=== PATIENT | female | born 1980 | race Caucasian/White ===

== ENCOUNTER 2019-03-08 09:48 | Observation (INO) | payer OTHER ==
[~2019-03-08] VITALS: Ht 172.7 cm; Wt 77.2 kg
--- NOTE | 2019-03-08 13:48 | NUR ---
1330: PT ARRIVED TO MED-SURG VIA STRECHER FROM THE ER. REPORT WAS CALLED TO ME BY OLYA SERRANO. PT STATES SHE HAS RIGHT SIDED NECK PAIN RATED AT A 5/10 WHICH SHE STATES IS TOLERABLE AT THIS TIME. THERE IS SOME NOTED SWELLING, SHE DENIES ANY SOB AND HER SAT IS 100% ON ROOM AIR. PT WAS ORIENTED TO THE ROOM AND INSTRUCTED IN THE USE OF HER CALL MERCADO. PT'S SPOUSE IN THE ROOM WITH THE PT. PT INSTRUCTED TO CALL WITH ANY SOB, INCREASED SWELLING WITH INCREASING PAIN WHICH SHE STATES UNDERSTANDING.
--- NOTE | 2019-03-08 14:10 | NUR ---
DR MYLES IN THE ROOM SEEING THE PT AT THIS TIME.
--- NOTE | 2019-03-08 14:46 | NUR ---
PT RESTING IN HER BED AND SHE STATES HER SYMPTOMS ARE UNCHANGED AND HER PAIN REAMINS AT A 5/10 AND SHE DECLINES MEDICATION AT THIS TIME WHEN OFFERED.
--- NOTE | 2019-03-08 16:09 | NUR ---
PT SITTING UP IN HER BED EATING AND SHE DENIES ANY TROUBLE SWALLOWING OR PAIN RELATED TO EATING. SHE CONTINUES TO STATE HER RIGHT SIDED NECK PAIN IS A 5/10 WHICH IS UNCHANGED AND ACCEPTABLE TO HER AT THIS TIME. THE RIGHT SIDE OF THE NECK CONTINUES TO HAVE SOME NOTED SWELLING WHICH APPEARS UNCHANGED. PT DENIES ANY SOB ALSO.
--- NOTE | 2019-03-08 17:32 | NUR ---
Patient in for external jugular vein occlusion. Dr. Ann in room following US to give good news they have 1 healthy 7 1/2 week baby. Pt and spouse are very excited and she states she was concerned they may have multiples due to infertility drugs and invetro. Pt works at [employer]. Pt admitted for education of Lovenox injections. Will dc to home tomorrow when discharged with instructions from Dr. Ann to not return to work until Wednesday and not to out on Wednesday as was planned.
--- NOTE | 2019-03-08 18:47 | EKG ---
[facility] [address] [facility] [place], [place] [address] Signed Normal sinus rhythm Normal ECG No previous ECGs available Confirmed by MARIANA MYLES DO ([id number]) on 03/08/2019 6:47:19 PM Electronically Signed By: MARIANA MYLES DO 03/08/19 1847 PATIENT NAME: NOLBERTO MESSINALEWIS Electrocardiogram DATE OF : 84 PHYSICIAN: MARIANA MYLES DO REPORT #: [id number] REPORT IS CONFIDENTIAL AND NOT TO BE RELEASED WITHOUT AUTHORIZATION
--- NOTE | 2019-03-08 18:55 | NUR ---
Pt states her right sided neck pain remains at a 5 and she declines Tylenol at this time. She denies any new problems or change in condition. Her neck appears unchanged. Pt's spouse (Stephon) remains at the bedside.
--- NOTE | 2019-03-08 19:00 | NUR ---
BEDSIDE REPORT RECEIVED FROM EARNESTINE BARBA AT BEDSIDE. PT AWAKE AND AMBULATING IN ROOM, ALSO IN ROOM. DENIES NEEDS.
--- NOTE | 2019-03-08 21:00 | NUR ---
PT AMBULATING IN ROOM, DENIES NEEDS AT THIS TIME. ALSO IN ROOM WITH PT.
--- NOTE | 2019-03-08 22:29 | NUR ---
VS AND I&OS COMPLETE. PT USED REST ROOM, AND REQUESTED MORE ICE WATER. SHE ALSO REQUESTED MORE PILLOWS FOR ADDITIONAL COMFORT. NOTHING FURTHER NEEDED AT THIS TIME.
--- NOTE | 2019-03-08 22:30 | NUR ---
ASSESSMENT COMPLETE, SCHEDULED MEDS GIVEN (SEE EMAR). PRN TYLENOL GIVEN FOR 5/10 PAIN IN RIGHT NECK. VSS, PT ON RA, RR WNL. NO DISTRESS NOTED. PT REPORTS FEELING SHORT OF BREATH AT TIMES AND MINIMAL PRESSURE IN UPPER CHEST NEAR NECK, PT STATES, "I DON'T KNW IF IT'S JUST FROM THE PRESSURE IN MY NECK". ENCOURAGED TO REST IN BED. PT ALSO STATES, "I'M NORMALLY PRETTY ACTIVE, BUT SINCE SEVEN-THIRTY TONGIHT, I FEEL LIKE I'M GETTING TIRED MORE EASILY". DISCUSSED [facility] DIRECTOR OF INTERCOLLEGIATE ATHLETICS AND WILL MONITOR. DISCUSSED WITH PT IMPORTANCE TO NOTIFY NURSING STAFF IF DIFFICULTY BREATHING, SOB, OR CHEST PAIN WORSENS. PT VERBALIZES UNDERSTANDING. STANDING WEIGHT OBTAINED, SEE INTERVENTION. PT RESTING IN BED, NO FURTHER NEEDS VERBALIZED. CALL LIGHT IN REACH.
--- NOTE | 2019-03-09 01:06 | NUR ---
PT RESTING IN BED. RR WNL, PT DENIES CHEST PAIN AT THIS TIME AND VERBALIZES THAT WORK OF BREATHING IS "EASIER THAN EARLIER". REPORTS PAIN IN RIGHT NECK HAS LESSENED SINCE ADMINISTRATION OF TYLENOL. NO NEEDS, CALL LIGHT IN REACH.
--- NOTE | 2019-03-09 03:05 | NUR ---
ASSESSMENT COMPLETE, NO NEW CHANGES OR CONCERNS. VSS, PT ON RA. PT DENIES CHEST PAIN, O2 SAT WNL. RIGHT NECK TENDER TO TOUCH, NO INCREASE IN SWELLING NOTED. PT DESCRIBES PAIN TOLERABLE AT THIS TIME, WILL MONITOR FOR CHANGES. NO FURTHER NEEDS, CALL LIGHT IN REACH.
--- NOTE | 2019-03-09 04:47 | NUR ---
PRN TYLENOL GIVEN FOR 5/10 RIGHT SIDED NECK PAIN. ROOM TIDED AND VS COLLECTED BY JUNE PHYSICIAN PEDIATRICIAN. NO FURTHER NEEDS, CALL LIGHT IN REACH.
--- NOTE | 2019-03-09 06:30 | NUR ---
PT HAD UNEVENTFUL NIGHT, VSS, PT REMAINED ON RA. RR WNL. AD BERNABE IN ROOM, USES CALL LIGHT APPROPERIATELY. PAIN CONTROLLED WITH PRN TYLENOL. REGULAR DIET, TOLERATING WELL, NO NAUSEA. VOIDING QS, NO BM THIS SHIFT.
--- NOTE | 2019-03-09 07:34 | NUR ---
Spoke to dr vega regarding pt's minimal chest pressure experienced earlier in shift that resolved. Also gave md a quick update regarding pt. no new orders.
--- NOTE | 2019-03-09 08:56 | NUR ---
MORNING ASSESSMENT DONE. PATIENT REPORTS 4/10 PAIN TO RIGHT NECK. PATIENT WAS ABLE TO SELF INJECT WITH LOVENOX. SPOUSE IN ROOM WITH PATIENT. PATIENT HAS QUESTIONS ABOUT POTENTIAL ACTIVITY RESTRICTIONS WITH CLOT AND MEDICATIONS.
--- NOTE | 2019-03-09 09:20 | NUR ---
VISITED WITH PT AND HER SPOUSE REGINA. PT IS KNOWLEDGEABLE ABOUT HER DX SHE WAS ABLE TO VERBALIZE IT AND THE MEDICATION THAT SHE WOULD BE TAKING FOR THIS. STATED THAT THIS MORNING DOSE SHE GAVE AND STATED THAT SHE FELT COMFORTABLE DOING THIS SHE STATES THIS WILL BE TWICE A DAY FOR 3 TO 6 MONTHS I HAVE TO DO THIS. SHE ALSO STATED THAT THE PAIN MED TYLENOL HELPED A LITTLE BUT SHE WAS WONDERING IF THERE WAS SOMETHING ELSE SHE COULD DO FOR COMFORT. AFTER TALKING WITH DR MYLES I TOLD HER HE SUGGESTED ICE OR HEAT, AND POSS A LIDOCAINE PATCH. PT VERY RECEPTIVE OF THIS INFORMATION. WE DID DISCUSS THAT SHE COULD RESUME NORMAL ACTIVITIES, KNOWING THAT IF IT HURTS SHE SHOULDN'T DO IT. WE ALSO TALKED ABOUT NOT MASSAGING OR RUBBING THE AREA THIS MAY BREAK UP THE CLOT AND SEND SMALLER CLOTS INTO HER SYSTEM, SHE WAS ALSO TOLD BY DRS THAT IT IS HIGHLY RECOMMENDED NOT TO FLY ON AIRLINES THIS CHANGES THE PRESSURE TO HER VEINS. PT STATES SHE HAS NO FURTHER QUESTIONS AT THIS TIME.
[2019-03-09] MEDS ORDERED: PRENATAL FORMU1 EAC3 PO (09:49)
--- NOTE | 2019-03-09 10:33 | NUR ---
PATIENT DOING MORNING HYGIENE. FACIAL WIPES PROVIDED.
--- NOTE | 2019-03-09 10:46 | NUR ---
1/2 LIDODERM PATCH PLACED TO RIGHT NECK. TYLENOL GIVEN FOR 4/10 PAIN.
[2019-03-09] MEDS ORDERED: ENOXAPARIN80 MG/0.8 SUB-Q (11:47)
[2019-03-09] MEDS ORDERED: LIDOCAINE1 EACH TD (11:48)
--- NOTE | 2019-03-09 11:59 | NUR ---
PATIENT REPORTS THAT LIDODERM PATCH TO RIGHT NECK IS WORKING VERY WELL, PAIN TOLERABLE.
--- NOTE | 2019-03-09 13:31 | NUR ---
PATIENT AND SPOUSE GIVEN DISCHARGE PAPERS. VITALS ARE STABLE, PATIENT IS FINISHING LUNCH.
== END 2019-03-09 13:55 | disposition home or self-care (01) ==
LOC: ED 09:48 → MS 09:50
PROVIDERS: ADMIT Student in an Organized Health Care Education/Training Program
DX: O22 Venous complications and hemorrhoids in pregnancy (principal); I82.C11 Acute embolism and thrombosis of right internal jugular vein; I82.890 Acute embolism and thrombosis of other specified veins; O20.9 Hemorrhage in early pregnancy, unspecified; Z3A.01 Less than 8 weeks gestation of pregnancy
CPT/HCPCS: 76536; 76801; 76817; 80053; 81001; 84703; 85025; 93005; 93010; 96372; 99285-25; G0378; J1650

== ENCOUNTER 2019-03-14 10:58 | Emergency (ER) | payer OTHER ==
[~2019-03-14] VITALS: Ht 172.7 cm; Wt 77.2 kg
[~2019-03-14 10:58] MED LIST: ENOXAPARIN80 MG/0.8 SUB-Q; LIDOCAINE1 EACH TD; PRENATAL FORMU1 EAC3 PO
--- OUTSIDE RECORDS SUMMARY | 2019-03-14 11:00 | XMS ---
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 - 2 Visits in 30 Days CARE PROVIDERS There are no care providers on record at this time. Sav has no Care Guidelines for this patient. [place] VISIT COUNT (12 MO.) [address] [facility] TOTAL 2 NOTE: Visits indicate total known visits. ED/C VISIT TRACKING (12 MO.) 03/14/2019 10:[address] [facility] [place] TYPE: Emergency COMPLAINT: - BLOOD CLOT IN NECK, 8 WKS 03/08/2019 09:49 [facility] [place] TYPE: Emergency COMPLAINT: - DIFFICULTY SWALLOWING INPATIENT VISIT TRACKING (12 MO.) 03/08/2019 09:50 [facility] [place] TYPE: Observation COMPLAINT: - EXTERNAL JUGULAR VEIN OCCLUSION DIAGNOSES: - Hemorrhage in early , unspecified - Other venous complications in , first trimester - Acute embolism and thrombosis of other specified veins - 1 Less than 8 weeks gestation of - Acute embolism and thrombosis of right internal jugular vein [email or web address]
== END 2019-03-14 16:31 | disposition home or self-care (01) ==
LOC: ED 10:58
DX: O99.411 Diseases of the circulatory system complicating pregnancy, first trimester (principal); I82.C11 Acute embolism and thrombosis of right internal jugular vein; Z3A.08 8 weeks gestation of pregnancy
CPT/HCPCS: 93971; 99283-25

== ENCOUNTER 2019-10-22 03:31 | Inpatient (IN) | payer OTHER ==
[~2019-10-22] VITALS: Ht 172.7 cm; Wt 89.4 kg
--- NOTE | 2019-10-22 15:37 | PR ---
[facility] [address] [facility] [place], [place] [address] Signed Progress Notes IP Datetime Report Generated by LAKIA: 10/22/2019 15:37 PROGRESS NOTES: [id number] Impression: Normal Progression of Labor Procedures: Artificial ROM Plan: Continue Present Management; Anticipate Vaginal Delivery VITAL SIGNS: [id number] Vital Signs: Reviewed; Within Normal Limits EXAM: [id number] Dilatation: 3.0 Effacement: 90 Station: -1 Contractions: every 2-4 minutes MEMBRANES: [id number] Membranes Status: Ruptured Comments: Tolerating contractions well, but contractions seem to be spacing out some. PTT = 38.8 (WNL), so OK for Epidural when patient ready (per Anesthesia). PAtient not ready yet, would like to try IV pain meds f]irst, before needing Epidural. Will continue with AROM. Discussed meconium and delivery. Questions answered. FETUS A: [id number] FHR Baseline: 120 Variability: Moderate 6-25bpm Accelerations: 15X15 Presentation: Vertex FETUS B: [id number] Signing Physician: Moo Argueta MD Copies: ~ *Electronically Signed* 10/22/19 1537 MOO ARGUETA MD PATIENT NAME: LEWIS GARZON PROGRESS NOTE DATE OF : 84 PHYSICIAN: MOO ARGUETA MD RPT #: [id number] REPORT IS CONFIDENTIAL AND NOT TO BE RELEASED WITHOUT AUTHORIZATION
--- NOTE | 2019-10-22 21:07 | PR ---
[facility] [address] [facility] [place], [place] [address] Signed Progress Notes IP Datetime Report Generated by CPN: 10/22/2019 21:07 PROGRESS NOTES: [id number] Impression: Normal Progression of Labor Other Impressions: Slow Progression Procedures: Intrauterine Pressure Catheter; Scalp Electrode Plan: Continue Present Management; Anticipate Vaginal Delivery VITAL SIGNS: [id number] Vital Signs: Reviewed; Within Normal Limits EXAM: [id number] Dilatation: 4.5 Effacement: 90 Station: -1 Contractions: every 2-4 minutes MEMBRANES: [id number] Membranes Status: Ruptured Comments: Slow progression, head does not seem as well-applied as before. May need Pitiocin augmentation soon, but will observe with internal monitors for a short while. FETUS A: [id number] FHR Baseline: 120 Variability: Moderate 6-25bpm Accelerations: 15X15 Presentation: Vertex FETUS B: [id number] Signing Physician: Zara Argueta MD Copies: ~ *Electronically Signed* 10/22/196 ZARA ARGUETA MD PATIENT NAME: LEWIS GARZON PROGRESS NOTE DATE OF : 84 PHYSICIAN: ZARA ARGUETA MD RPT #: [id number] REPORT IS CONFIDENTIAL AND NOT TO BE RELEASED WITHOUT AUTHORIZATION
--- NOTE | 2019-10-22 21:08 | PR ---
[facility] [address] [facility] [place], [place] [address] Signed Progress Notes IP Datetime Report Generated by CPN: 10/22/2019 21:08 PROGRESS NOTES: [id number] Impression: Normal Progression of Labor Other Impressions: Slow Progression Procedures: Intrauterine Pressure Catheter; Scalp Electrode Plan: Continue Present Management; Anticipate Vaginal Delivery VITAL SIGNS: [id number] Vital Signs: Reviewed; Within Normal Limits EXAM: [id number] Dilatation: 4.5 Effacement: 90 Station: -1 Contractions: every 2-4 minutes MEMBRANES: [id number] Membranes Status: Ruptured Comments: Slow progression, head does not seem as well-applied as before. May need Pitiocin augmentation soon, but will observe with internal monitors for a short while. FETUS A: [id number] FHR Baseline: 120 Variability: Moderate 6-25bpm Accelerations: 15X15 Presentation: Vertex FETUS B: [id number] Signing Physician: Zara Argueta MD Copies: ~ *Electronically Signed* 10/22/19 9353 ZARA ARGUETA MD PATIENT NAME: LEWIS GARZON PROGRESS NOTE DATE OF : 84 PHYSICIAN: ZARA ARGUETA MD RPT #: [id number] REPORT IS CONFIDENTIAL AND NOT TO BE RELEASED WITHOUT AUTHORIZATION
--- NOTE | 2019-10-23 05:26 | PR ---
[facility] [address] [facility] [place], [place] [address] Signed Progress Notes IP Datetime Report Generated by CPN: 10/23/2019 05:26 PROGRESS NOTES: [id number] Impression: Normal Progression of Labor Other Impressions: Slow Progression Procedures: Intrauterine Pressure Catheter; Scalp Electrode Plan: Continue Present Management Other Plans: Start pushing VITAL SIGNS: [id number] Vital Signs: Reviewed; Within Normal Limits EXAM: [id number] Dilatation: 10.0 Effacement: 100 Station: 0 Contractions: every 2-4 minutes MEMBRANES: [id number] Membranes Status: Ruptured Comments: Comfortable with Epiduiral, will start pushing. FETUS A: [id number] FHR Baseline: 120 Variability: Moderate 6-25bpm Accelerations: 15X15 Presentation: Vertex FETUS B: [id number] Signing Physician: Moo Argueta MD Copies: ~ *Electronically Signed* 10/23/19 0526 MOO ARGUETA MD PATIENT NAME: LEWIS GARZON SOURAV PROGRESS NOTE DATE OF : 84 PHYSICIAN: MOO ARGUETA MD RPT #: [id number] REPORT IS CONFIDENTIAL AND NOT TO BE RELEASED WITHOUT AUTHORIZATION
--- NOTE | 2019-10-23 05:27 | PR ---
[facility] [address] [facility] [place], [place] [address] Signed Progress Notes IP Datetime Report Generated by CPN: 10/23/2019 05:27 PROGRESS NOTES: [id number] Impression: Normal Progression of Labor Other Impressions: Slow Progression Procedures: Intrauterine Pressure Catheter; Scalp Electrode Plan: Continue Present Management Other Plans: Start pushing VITAL SIGNS: [id number] Vital Signs: Reviewed; Within Normal Limits EXAM: [id number] Dilatation: 10.0 Effacement: 100 Station: 0 Contractions: every 2-4 minutes MEMBRANES: [id number] Membranes Status: Ruptured Comments: Comfortable with Epiduiral, will start pushing. FETUS A: [id number] FHR Baseline: 120 Variability: Moderate 6-25bpm Accelerations: 15X15 Presentation: Vertex FETUS B: [id number] Signing Physician: Moo Argueta MD Copies: ~ *Electronically Signed* 10/23/19 0527 MOO ARGUETA MD PATIENT NAME: LEWIS GARZON SOURAV PROGRESS NOTE DATE OF : 84 PHYSICIAN: MOO ARGUETA MD RPT #: [id number] REPORT IS CONFIDENTIAL AND NOT TO BE RELEASED WITHOUT AUTHORIZATION
--- NOTE | 2019-10-23 10:09 | NUR ---
10/23/19 1009 Sandrine Osullivan 1000- PT TO PACU IN SUPINE POSITION. EYES CLOSED. AWAKENS TO VOICE AND FOLLOWS COMMANDS APPROPRIATELY. BREATHING EASY AND UNLABORED. SPO2 >95% ON 6 L O2 VIA SIMPLE MASK. PT ABLE TO MOVE HIPS AND WIGGLE TOES. DENIES PAIN OR NAUSEA. TREMOR OBSERVED. PT ENCOURAGED TO TAKE DEEP BREATHS AND REST. 1008- PT CONTINUES TO BREATH EASY WITH EYES CLOSED. SPO2 >95% ON 6 L O2 VIA SIMPLE MASK. REPORT RECEIVED FROM GSE MECHANIC. CASEYS.
--- NOTE | 2019-10-23 13:08 | PR ---
[facility] [address] [facility] [place], [place] [address] Signed PP Progress Notes Datetime Report Generated by CPN: 10/23/2019 13:08 SUBJECTIVE: [id number] Pain: Within Normal Limits Nausea/Vomiting: Denies Vital Signs: [id number] Vital Signs: Reviewed; Within Normal Limits EXAM: Ongoing Abdomen/Uterus: Normal Lochia: Normal Extremities: Normal IMPRESSION/PLAN/PROCEDURES: [id number] Impression: Normal Progression Plan: Continue Present Management Procedures: None Progress Notes: Recovering well after PP Curettage, no compalints. Discussed surgery, findings, EBL. Will check Hemogram tonight and repeat in am. Plan to restart Lovenox therapeutic dose @ 1800 today (same dose as antepartum). Questions answered Signing Physician: Zara Argueta MD Copies: ~ *Electronically Signed* 10/23/19 1308 ZARA ARGUETA MD PATIENT NAME: LEWIS GARZON PROGRESS NOTE DATE OF : 84 PHYSICIAN: ZARA ARGUETA MD RPT #: [id number] REPORT IS CONFIDENTIAL AND NOT TO BE RELEASED WITHOUT AUTHORIZATION
--- NOTE | 2019-10-24 13:10 | PR ---
[facility] [address] [facility] [place], [place] [address] Signed PP Progress Notes Datetime Report Generated by CPN: 10/24/2019 13:10 SUBJECTIVE: [id number] Pain: Within Normal Limits Nausea/Vomiting: Denies Vital Signs: [id number] Vital Signs: Reviewed; Within Normal Limits Notable Details: PP Hgb/Hct = 8.2/24.7, Plts = 131 EXAM: Met Abdomen/Uterus: Normal Lochia: Normal Extremities: Normal IMPRESSION/PLAN/PROCEDURES: [id number] Impression: Normal Progression Plan: Continue Present Management Procedures: None Progress Notes: Doing well, without complaint, restarted Lovenox, normal PP bleeding. Discussed anemia, borderline platelets. Will repeat Hemogram in am. Signing Physician: Zara Argueta MD Copies: ~ *Electronically Signed* 10/24/19 1310 ZARA ARGUETA MD PATIENT NAME: LEWIS GARZON PROGRESS NOTE DATE OF : 84 PHYSICIAN: ZARA ARGUETA MD RPT #: [id number] REPORT IS CONFIDENTIAL AND NOT TO BE RELEASED WITHOUT AUTHORIZATION
--- NOTE | 2019-10-25 08:55 | PR ---
[facility] [address] [facility] [place], [place] [address] Signed PP Progress Notes Datetime Report Generated by CPN: 10/25/2019 08:55 SUBJECTIVE: [id number] Pain: Within Normal Limits Nausea/Vomiting: Denies Vital Signs: [id number] Vital Signs: Reviewed; Within Normal Limits Notable Details: PP Hgb/Hct = 8.0/24.5, Plts = 152 EXAM: Met Abdomen/Uterus: Normal Lochia: Normal Extremities: Normal IMPRESSION/PLAN/PROCEDURES: [id number] Impression: Normal Progression Other Impression: PP Anemia Plan: Discharge Procedures: None Progress Notes: Doing well, without complaint, up moving without difficulty, no bleeding problems, taking Lovenox again. Ready to go home. Signing Physician: Zara Argueta MD Copies: ~ *Electronically Signed* 10/25/19 0855 ZARA ARGUETA MD PATIENT NAME: LEWIS GARZON PROGRESS NOTE DATE OF : 84 PHYSICIAN: ZARA ARGUETA MD RPT #: [id number] REPORT IS CONFIDENTIAL AND NOT TO BE RELEASED WITHOUT AUTHORIZATION
--- NOTE | 2019-10-26 08:20 | OR ---
[facility] [address] [place], [place] [address] Signed DATE OF OPERATION: 10/23/2019 SURGEON: Zara Mariee MD Patient of Dr. Mariee. PREOPERATIVE DIAGNOSIS: retained membranes. POSTOPERATIVE DIAGNOSIS: retained membranes. PROCEDURE: curettage. SPRING BENDER: Dr. Oreilly. ANESTHESIA: General. ESTIMATED BLOOD LOSS: 400 mL. SPECIMEN: Uterine curettings. DRAINS: Reyes to bladder. PACKING: None. FINDINGS: Vagina, immediate with closed perineal laceration and vaginal laceration. Good hemostasis. The cervix was still open approximately 6 cm. No cervical lacerations noticed. Uterus was approximately 18-week size, firm. Mild bleeding. There were only small amount of adherent fragments of membranes within the uterine cavity. COMPLICATIONS: Electronically Signed By: ZARA MARIEE MD 10/26/19 0820 PATIENT NAME: LEWIS GARZON OPERATIVE REPORT DATE OF : 84 REPORT #: [id number] PHYSICIAN: ZARA MARIEE MD PCP: ABIMAEL PHOENIX MD REPORT IS CONFIDENTIAL AND NOT TO BE RELEASED WITHOUT AUTHORIZATION [facility] [address] [place], [place] [address] Signed None. DESCRIPTION OF PROCEDURE: The patient was brought into the operating room, placed in supine position. After adequate general anesthesia was obtained was placed in dorsal lithotomy position, prepped and draped in usual sterile fashion. Reyes catheter was in the bladder already. The patient was given Ancef and during the procedure, given tranexamic acid. A weighted speculum was placed in the vagina and anterior lip of the cervix was grasped with ring forceps. Posterior aspect was also grasped with ring forceps and the entire cervix inspected in a 360 degree fashion to make sure there were no lacerations or bleeding from the cervix. No membranes were seen coming out. The instruments were removed and hand attempted to place through the cervix inside the cavity to feel membranes. Some membranes could be felt very tip of the finger, but could not be grasped. Uterus did feel firm from above, so the hand was removed and weighted speculum was placed back in. Again, the cervix was grasped with ring forceps. The large curette was carefully introduced through the cervix and the uterine cavity scraped in 360 degrees fashion removing some clots, but no tissue. A sponge stick was placed in the uterus and scraped. This did remove a few pieces of membranes and ring Forceps used near the fundus to grasp and pull some small pieces of membranes free. Dr. Oreilly then came in to help and with the smaller hand was able to palpate further into the uterine cavity and identified further fragments, which were then removed with ring forceps and with sponge sticks. This was continued until no more membranes were palpated and one more time the sharp curette used. No additional tissue removed. All instruments were removed and vagina and cervix were monitored and minimal blood was coming from the uterus. Uterus was nice and firm, so it was decided at this point to terminate the procedure since the no additional tissue was able to be removed. The patient tolerated this procedure well, went to recovery room in good condition. The sponge and instrument count correct during the procedure. The uterine curettings were sent to Pathology for identification. Zara Mariee MD MJB/MODL /[id number] Electronically Signed By: ZARA MARIEE MD 10/26/19819 PATIENT NAME: LEWIS GARZON OPERATIVE REPORT DATE OF : 84 REPORT #: [id number] PHYSICIAN: ZARA MARIEE MD PCP: ABIMAEL PHOENIX MD REPORT IS CONFIDENTIAL AND NOT TO BE RELEASED WITHOUT AUTHORIZATION [facility] [address] [place], [place] [address] Signed Copies: ~ Electronically Signed By: ZARA MARIEE MD 10/26/19819 PATIENT NAME: LEWIS GARZON OPERATIVE REPORT DATE OF : 84 REPORT #: [id number] PHYSICIAN: ZARA MARIEE MD PCP: ABIMAEL PHOENIX MD REPORT IS CONFIDENTIAL AND NOT TO BE RELEASED WITHOUT AUTHORIZATION
--- NOTE | 2019-10-26 09:19 | PATH ---
[facility] [address], [place] [address] Signed SPECIMEN(S): A PLACENTA SPECIMEN SOURCE: A. PLACENTA CLINICAL HISTORY: Mother's age: 39. OB history: . Gestational age: 39 and 6. 's weight: 8 lbs 11 oz. score: 8/9. (Rhogam no). Maternal serologies: Hepatitis screen negative, GBS positive. Specific issues of concern: Retained placenta. FINAL PATHOLOGIC DIAGNOSIS: Placenta, third trimester, delivery: - Sanders placenta, appropriate weight for stated gestational age of 39 weeks, 6 days. - Umbilical cord: Three-vessel umbilical cord with no histopathologic abnormality. - membranes: Acute chorioamnionitis. - Placental disc: Chorionic villi with mature villous morphology, increased perivillous fibrin deposition (approximately 10% of placental parenchyma). "Retained placenta": - Fragments of partially necrotic decidua, placental tissue, and myometrium. - See comment. COMMENT: No evidence of placenta accreta or basal plate myometrial fibers is identified within both the placenta and the separately submitted specimen designated "retained placenta". NAL:vlg:C2NR MICROSCOPIC EXAMINATION: Histologic sections of all submitted blocks are examined by light microscopy. These findings, together with the gross examination, support the pathologic diagnosis. GROSS DESCRIPTION: The specimen is received in two containers, labeled "Iman Garzon,". The first container is received labeled "Evelin FAN," and designated on the requisition "retained placenta, DC," is received in formalin and consists of erythematous, membranous tissue fragments with PATIENT NAME: IMAN GARZON PATHOLOGY DATE OF : 84 REPORT #: [id number] PHYSICIAN: GONZALEZ PATHOLOGY PCP: ABIMAEL PHOENIX MD REPORT IS CONFIDENTIAL AND NOT TO BE RELEASED WITHOUT AUTHORIZATION [facility] [address], [place] [address] Signed clot material measuring 7.0 x 6.2 x 1.5 cm in aggregate. Parenchyma, villous tissue, or fragments are not grossly identified. Drying Machine Operator Package Yarns sections are submitted in cassettes (A1-A4). AT (under the direct supervision of a pathologist) The second container is received labeled " Malu Mcdonough Katherine," and designated on the requisition "placenta," consists of sanders discoid placenta with the following parameters: Umbilical cord: Insertion paramarginal, measurement 20.8 x 1.2 cm; trivascular. Additional cord segment, measurement 17.5 x 1.5 cm Cord coiling index (per 10 cm): 5. Lesions: Not grossly identified. Membranes: Insertion site: Partial circumvallate, yellow-green and translucent, rupture site cannot be grossly assessed. Fragmented. Other: Not grossly identified. Chorionic Plate: Normal radiating vascular pattern, blue-green. Lesions: Not grossly identified. Other: Not grossly identified. Maternal Surface: Normal cotyledons, focally fragmented. Lesions: Not grossly identified. Measurement: 19.5 x 18.6 x 2.5 cm. Weight (trimmed): 486 g Cut Surface: Maroon and spongy. Lesions: One pink-ojeda firm, rubbery area of consolidation that is 9.0 x 5.5 x 1.8 cm. This area involves approximately 10% of the placenta parenchyma. Basal plate fibrin 0.1 cm in thickness. Other Findings: Separate within the container is a 14.0 x 9.5 x 3.7 cm aggregate of red-brown friable blood clot. Cassette Summary: (A5) membranes and umbilical cord (A6) area of consolidation (A7) area of consolidation (A8) placenta parenchyma. The Gross Description was prepared using a voice recognition system. The report was reviewed for accuracy; however, sound-alike word errors, addition and/or deletions may occur. If there is any question about this report, please contact Client Services. PERFORMING LABORATORY: The technical component was performed by [employer], [address] [place] [id number] (Vice President Network: Sarah Mendoza MD; CLIA# [id number]). [facility], [address] [place] [id number] (CLIA# [id number]). PATIENT NAME: IMAN GARZON PATHOLOGY DATE OF : 84 REPORT #: [id number] PHYSICIAN: GONZALEZ PATHOLOGY PCP: ABIMAEL PHOENIX MD REPORT IS CONFIDENTIAL AND NOT TO BE RELEASED WITHOUT AUTHORIZATION [facility] [address], [place] [address] Signed Diagnostician: Alcira Grimes MD Pathologist Electronically Signed 10/26/2019 Copies: ~ PATIENT NAME: IMAN GARZON PATHOLOGY DATE OF : 84 REPORT #: [id number] PHYSICIAN: GONZALEZ AGARWAL PCP: ABIMAEL PHOENIX MD REPORT IS CONFIDENTIAL AND NOT TO BE RELEASED WITHOUT AUTHORIZATION
== END 2019-10-25 13:30 | disposition home or self-care (01) | DRG 807 ==
LOC: FBCO 03:31 → FBC 07:30
PROVIDERS: ADMIT General Practice
PROC: 3E0S3BZ Introduction of Anesthetic Agent into Epidural Space, Percutaneous Approach (ICD-10-PCS; 2019-10-22)
PROC: 00HU33Z Insertion of Infusion Device into Spinal Canal, Percutaneous Approach (ICD-10-PCS; 2019-10-22)
PROC: 0KQM0ZZ Repair Perineum Muscle, Open Approach (ICD-10-PCS; 2019-10-23)
PROC: 10D17Z9 Manual Extraction of Products of Conception, Retained, Via Natural or Artificial Opening (ICD-10-PCS; 2019-10-23)
PROC: 0W8NXZZ Division of Female Perineum, External Approach (ICD-10-PCS; 2019-10-23)
PROC: 10E0XZZ Delivery of Products of Conception, External Approach (ICD-10-PCS; principal; 2019-10-23 09:00)
DX: O99.824 Streptococcus B carrier state complicating childbirth (principal); Z37.0 Single live birth; Z3A.39 39 weeks gestation of pregnancy; O75.81 Maternal exhaustion complicating labor and delivery; Z86.718 Personal history of other venous thrombosis and embolism; O77.0 Labor and delivery complicated by meconium in amniotic fluid; O72.2 Delayed and secondary postpartum hemorrhage
CPT/HCPCS: 00952; 01960; 36415; 59025; 85027; 85730; 86850; 86900; 86901; 86920; 99213; A9270; J0330; J0690; J1100; J1650; J1885; J2175; J2250; J2405; J2540; J2590; J2704; J2765; J2795; J3010; J7121

== ENCOUNTER 2022-09-27 15:32 | Inpatient (IN) | payer OTHER ==
[~2022-09-27] VITALS: Ht 172.7 cm; Wt 94.3 kg
--- OUTSIDE RECORDS SUMMARY | ~2022-09-27 | XMS | Continuity of Care Document ---
Demographics + + + | Address | [address] | | | [place] [address] | + + + | Preferred Language | Unknown | + + + | Marital Status | | + + + | Mosque Affiliation | Unknown | + + + | Race | White | + + + | Ethnic Group | Unknown | + + + Author + + + | Author | [facility] | + + + | Organization | [facility] | + + + | Address | [address] | | | [place] [address] | + + + | Phone | | + + + Care Team Providers + + + + | Care Solder Cream Maker Name | Role | Phone | + + + + Unavailable | Unavailable | + + + + Allergies and Intolerances + + + + + | date | description | facility | type | + + + + + | (no date) | No Known Allergies | [facility] | (unknown) | | | | | | + + + + + Encounters No information. Functional Status No information. Immunizations No information. Medications No information. Problems + + + + | date | description | facility | + + + + | 2022-02-19 10:08 | ENCOUNTER FOR SUPRVSN OF | [facility] | | | NORMAL , FIRST | | | | TRIMESTER | | + + + + | 2022-02-19 10:08 | LESS THAN 8 WEEKS | [facility] | | | GESTATION OF | | + + + + | 2022-02-19 10:08 | 8 WEEKS GESTATION OF | [facility] | | | | | + + + + | 2022-04-20 18:57 | ACUTE EMBOLISM AND | [facility] | | | THROMBOSIS OF UNSPECIFIED | | | | VEIN | | + + + + | 2022-05-19 08:58 | SUPERVISION OF ELDERLY | [facility] | | | MULTIGRAVIDA, SECOND | | | | TRIMESTER | | + + + + | 2022-05-19 08:58 | 21 WEEKS GESTATION OF | [facility] | | | | | + + + + | 2022-08-04 20:27 | SUPERVISION OF ELDERLY | [facility] | | | MULTIGRAVIDA, THIRD TRIMEST | | | | | | + + + + | 2022-08-04 20:27 | SUPERVISION OF ELDERLY | [facility] | | | MULTIGRAVIDA, UNS | | + + + + | 2022-08-04 20:27 | SUPERVISION OF HIGH RISK | [facility] | | | , UNSP, THIRD | | | | TRIMESTER | | + + + + | 2022-08-07 10:43 | DEEP PHLEBOTHROMBOSIS IN | [facility] | | | , UNSPECIFIED | | | | TRIMESTER | | + + + + | 2022-08-13 17:32 | SUPERVISION OF ELDERLY | [facility] | | | MULTIGRAVIDA, THIRD | | | | TRIMESTER | | + + + + | 2022-08-13 17:32 | 33 WEEKS GESTATION OF | [facility] | | | | | + + + + | 2022-08-20 17:41 | ENCNTR FOR SUPRVSN OF | [facility] | | | NORMAL , UNSP, | | | | UNSP TRIMESTER | | + + + + | 2022-08-27 17:28 | SUPERVISION OF ELDERLY | [facility] | | | MULTIGRAVIDA, UNSPECIFIED T | | | | | | + + + + | 2022-08-27 17:28 | SUPERVISION OF HIGH RISK | [facility] | | | , UNSP, UNSP | | | | TRIMESTER | | + + + + | 2022-09-03 17:11 | SUPERVISION OF ELDERLY | [facility] | | | MULTIGRAVIDA, UNS | | + + + + | 2022-09-03 17:11 | SUPERVISION OF HIGH RISK | [facility] | | | , UNSP, UNSP | | | | TRIMESTER | | + + + + | 2022-09-07 16:34 | SUPERVISION OF ELDERLY | [facility] | | | MULTIGRAVIDA, THIRD | | | | TRIMESTER | | + + + + | 2022-09-07 16:34 | 37 WEEKS GESTATION OF | [facility] | | | | | + + + + | 2022-09-10 17:00 | SUPERVISION OF ELDERLY | [facility] | | | MULTIGRAVIDA, UNS | | + + + + | 2022-09-10 17:00 | SUPERVISION OF HIGH RISK | [facility] | | | , UNSP | | + + + + | 2022-09-10 17:24 | SUPERVISION OF ELDERLY | [facility] | | | MULTIGRAVIDA, UNS | | + + + + | 2022-09-10 17:24 | SUPERVISION OF HIGH RISK | [facility] | | | , UNSP | | + + + + | 2022-09-10 17:24 | SUPERVISION OF HIGH RISK | [facility] | | | , UNSP, UNSP | | | | TRIMESTER | | + + + + | 2022-09-14 16:47 | ENCNTR FOR SUPRVSN OF | [facility] | | | NORMAL PREG, UNSP, THIRD | | | | TRIMESTER | | + + + + | 2022-09-14 16:47 | 30 WEEKS GESTATION OF | [facility] | | | | | + + + + | 2022-09-17 17:00 | SUPERVISION OF ELDERLY | [facility] | | | MULTIGRAVIDA, UNS | | + + + + | 2022-09-17 17:00 | SUPERVISION OF HIGH RISK | [facility] | | | , UNSP | | + + + + | 2022-09-17 17:15 | SUPERVISION OF ELDERLY | [facility] | | | MULTIGRAVIDA, UNS | | + + + + | 2022-09-17 17:15 | SUPERVISION OF ELDERLY | [facility] | | | MULTIGRAVIDA, UNSPECIFIED | | | | TRIMESTER | | + + + + | 2022-09-17 17:15 | SUPERVISION OF HIGH RISK | [facility] | | | , UNSP | | + + + + | 2022-09-24 17:00 | SUPERVISION OF ELDERLY | [facility] | | | MULTIGRAVIDA, UNS | | + + + + | 2022-09-24 17:00 | SUPERVISION OF HIGH RISK | [facility] | | | , UNSP | | + + + + | 2022-09-24 17:17 | SUPERVISION OF ELDERLY | [facility] | | | MULTIGRAVIDA, UNS | | + + + + | 2022-09-24 17:17 | SUPERVISION OF HIGH RISK | [facility] | | | , UNSP | | + + + + Procedures No information. Results/Labs No information. Social History No information. Vital Signs No information."
[2022-09-28 02:03] VITALS: BP 119/65
--- NOTE | 2022-09-28 08:37 | PR ---
[facility] [address], [place] [address] Signed Progress Notes IP Datetime Report Generated by CPN: 09/28/2022 08:36 PROGRESS NOTES: [id number] Impression: Normal Progression of Labor; Reassuring Heart Rate Procedures: Artificial ROM Plan: Continue Present Management Informed Consent Obtain: Vaginal Delivery VITAL SIGNS: [id number] Vital Signs: Reviewed; Within Normal Limits EXAM: [id number] Dilatation: 5.5 Effacement: 70 Station: -2 Contractions: Irregular MEMBRANES: [id number] Comments: Pt seen and examined. Comfortable w/ epidural. Some hypotension following epidural that has resolved. Cat 1 tracing throughout. AROM performed easily for moderate amount of clear fluid with scant blood clot. Pt and baby tolerated well. Continue expectant management. Anticipate FETUS A: [id number] FHR Baseline: 130 Variability: Moderate 6-25bpm Accelerations: 15X15 Decelerations: None FHR Category: Category I Presentation: Vertex Comments on Fetus A: Late decelerations noted earlier resolved; now Cat 1 FETUS B: [id number] Signing Physician: Tamiko Lara DO Copies: ~ *Electronically Signed* 09/28/22835 TAMIKO LARA (JOSE) DO PATIENT NAME: LEWIS GARZON PROGRESS NOTE DATE OF : 84 PHYSICIAN: TAMIKO LARA) DO RPT #: [id number] REPORT IS CONFIDENTIAL AND NOT TO BE RELEASED WITHOUT AUTHORIZATION
--- NOTE | 2022-09-29 08:57 | PR ---
[facility] [address] [place], [place] [address] Signed PP Progress Notes Datetime Report Generated by CPN: 09/29/2022 08:57 SUBJECTIVE: [id number] Pain: Within Normal Limits Nausea/Vomiting: Denies Bowel Movement: No Vital Signs: [id number] Vital Signs: Reviewed; Within Normal Limits Cardiovascular: Normal Respiratory: Normal Abdomen/Uterus: Normal Lochia: Normal Vulva/Perineum: Not Done Breasts: Not Done CVA Tenderness: Normal Extremities: Normal Incision: Abnormal Progress: Normal Exam Comments: Fundus firm U-2 nontender IMPRESSION/PLAN/PROCEDURES: [id number] Impression: Normal Progression Plan: Discharge Progress Notes: Pt seen and examined. Doing well. Ambulating, voiding, and tolerating full diet. Pain and lochia minimal. well. No fevers/chills. Desires d/c home. Reviewed d/c instructions, medications, lovenox dosing, and anticipated course. Pt meeting w/ vascular surgeon next week for further evaluation and recommendations. Will continue lovenox 80mg at bedtime as directed; pt reports she has necessary supplies. Undecided on pp contraception; long hx of infertility. Signing Physician: Tamiko Lara DO Copies: ~ *Electronically Signed* 09/29/22 0857 TAMIKO LARA (JOSE) DO PATIENT NAME: LEWIS GARZON PROGRESS NOTE DATE OF : 84 PHYSICIAN: TAMIKO LARA) DO RPT #: [id number] REPORT IS CONFIDENTIAL AND NOT TO BE RELEASED WITHOUT AUTHORIZATION
--- NOTE | 2022-09-29 13:43 | NUR ---
MOM WAS IN BED WITH DAD AT BEDSIDE. BABY WAS IN MOM'S ARMS AND APPEARED TO BE NURSING. WE TALKED OF TRANSITION AND THE ADJUSTMENT OF OLDER BROTHER WELL CHALLENGES OF HAVING TWO CHILDREN UNDER 4. MATERNAL GRANDMOTHER IS HERE TO HELP FOR A WHILE. PRAYED.
== END 2022-09-29 13:35 | disposition home or self-care (01) | DRG 807 ==
LOC: FBC
PROVIDERS: ADMIT Obstetrics & Gynecology; ATTEND Obstetrics & Gynecology
PROC: 10E0XZZ Delivery of Products of Conception, External Approach (ICD-10-PCS; principal; 2022-09-28)
PROC: 10907ZC Drainage of Amniotic Fluid, Therapeutic from Products of Conception, Via Natural or Artificial Opening (ICD-10-PCS; 2022-09-28)
PROC: 0UQMXZZ Repair Vulva, External Approach (ICD-10-PCS; 2022-09-28)
PROC: 3E0R3BZ Introduction of Anesthetic Agent into Spinal Canal, Percutaneous Approach (ICD-10-PCS; 2022-09-28)
PROC: 00HU33Z Insertion of Infusion Device into Spinal Canal, Percutaneous Approach (ICD-10-PCS; 2022-09-28)
DX: O48.0 Post-term pregnancy (principal); Z37.0 Single live birth; O76 Abnormality in fetal heart rate and rhythm complicating labor and delivery; O71.82 Other specified trauma to perineum and vulva; Z3A.40 40 weeks gestation of pregnancy; Z86.718 Personal history of other venous thrombosis and embolism; Z86.16 Personal history of COVID-19; Z20.822 Contact with and (suspected) exposure to COVID-19
CPT/HCPCS: 01960; 36415; 85027; 86850; 86900; 86901; 87502; A9270; J1650; J2590; J7121; U0002